=== PATIENT | female | born 1945 | race Caucasian/White ===

== ENCOUNTER → 2019-04-04 | Emergency (ER) | payer MEDICARE, OTHER ==
[~2019-04-04] VITALS: Ht 175.3 cm; Wt 87.2 kg
[~2019-04-04] MED LIST: NO HOME MEDS; acetaminophen 325mg tablet PO ONE
[2019-04-04 22:37] VITALS: BP 139/75
== END | disposition home or self-care (01) ==
LOC: ER 19:31
DX: M79.601 Pain in right arm (principal); Z98.890 Other specified postprocedural states; Z88.1 Allergy status to other antibiotic agents
CPT/HCPCS: 93005; 93971; 99284